=== PATIENT | female | born 1955 | race Caucasian/White ===

== ENCOUNTER 2019-06-01 08:09 | Outpatient (CLI) | payer MEDICARE, SELFPAY ==
[2019-06-01 08:48] LABS: Basophils % 0.5 %; Eosinophils # 0.1 10^3/uL (0.0-0.8); Eosinophils % 2.2 %; Hematocrit 43.9 % (37.0-47.0); Hemoglobin 13.4 g/dL (11.5-15.3); Lymphocytes # 1.3 10^3/uL (0.8-4.8); Lymphocytes % 32.6 %; Mean Corpuscular HGB Conc 30.5 g/dL (30.0-36.0); Mean Corpuscular Hemoglobin 31.9 pg (28.0-34.0); Mean Corpuscular Volume 104.5 fL (81-99); Mean Platelet Volume 9.6 fL (7.4-10.4); Monocytes # 0.4 10^3/uL (0.2-0.9); Neutrophils # 2.2 10^3/uL (1.8-7.7); Neutrophils % 54.5 %; Nucleated Red Blood Cells % 0 %; Platelet Count 268 10^3/cmm (130-400); Red Cell Distribution Width 12.3 % (12.1-15.1)
[2019-06-01 09:06] LABS: Alanine Aminotransferase 14 U/L (0-33); Albumin Level 4.4 g/dL (3.5-5.2); Alkaline Phosphatase 67 IU/L (35-105); Anion Gap 14.5 (5-19); Aspartate Amino Transferase 21 U/L (0-32); Blood Urea Nitrogen 18 mg/dL (8-23); Calcium 10.3 mg/dL (8.5-10.5); Carbon Dioxide 28 mmol/L (22-29); Chloride 101 mmol/L (98-107); Globulin 3.5 g/dL (1.3-4.6); Glomerular Filtration Rate 101.3 mL/min (90-130); Glucose 87 mg/dL (65-115); Potassium 4.5 mmol/L (3.5-5.1); Sodium 139 mmol/L (136-145); Total Bilirubin 0.3 mg/dL (0.15-1.2); Total Protein 7.9 g/dL (6.6-8.7)
--- NOTE | 2019-06-04 07:15 | ONC FU_ITS ---
Dr. Riddle Patient Follow-Up Note Patient: Kaci Lloyd Unit #: [id number]: 1955 Dicatated By: Vickey Riddle M.D.Date of Visit:Jun 01, 2019 Onc Med Follow-up/Prog Note Chief Complaint: Breast cancer. 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 She had presented with an abnormal screening mammogram. Diagnostic mammogram and ultrasound on 01/17/2015 showed 1.6 cm mass located 1 cm from the nipple and 5.2 mm mass located at 2 cm for the nipple, both lesions at the 11:00 position. An ultrasound-guided biopsy on 02/02/2015 of both lesions revealed adenocarcinoma with a mixed histological pattern, grade 2 out of 3. Her prognostic profile showed ER 80%, NC 75%, and HER-2/cristofer negative (1+ by IHC, FISH not amplified at 1.1). Ki-67 index was 9%. She was first seen by Dr. Sanchez on 02/22/2015. On 03/10/2015 she underwent lumpectomy and sentinel lymph node biopsy by Dr. De Jesus. Her surgical pathology showed 1.2 cm tumor with positive posterior and superior margins. A total of 8 sentinel lymph nodes were negative for metastatic disease. Thus, her clinical staging was IA (T1c, N0, M0). She underwent re-excision on 03/29/2015 with pathology showing scant residual adenocarcinoma and free margins. Oncotype DX score was 13, corresponding to 9% risk of recurrence in 10 years following hormonal therapy. Adjuvant chemotherapy was not recommended. She completed radiation to the right breast on 06/13/2015 to a total dose of 6000 cGy. Adjuvant hormonal therapy with Femara 2.5 mg began on 03/24/2015. I had seen her for a scheduled followup visit on 05/01/2016. At that time she reported increased fatigue and hot flashes, and she was having more musculoskeletal pain. I suspected that at least some of this was treatment related, and I did have her stop the letrozole. On her follow-up visit on 06/05/2016 she still had some fatigue, but she felt that her energy was 60% better off the letrozole. She still complained of pain in her right breast, but the musculoskeletal pain had improved. At that point she began further hormonal therapy with exemestane 25 mg daily. During subsequent follow-up, she has continued to have some fatigue on the exemestane and she also has had some hot flashes, but side effects have been tolerable. Her other medical illnesses have included degenerative arthritis and peripheral neuropathy. She has significant TMJ arthropathy, and she had undergone placement of TMJ implants. She underwent bilateral total knee arthroplasty in 2012. Her Dexa scan in November 2015 showed normal bone density. She is a nonsmoker. Her family history is significant in a sister has been treated for rectal cancer, and she apparently also was found to have follicular lymphoma. There has been no breast cancer or ovarian cancer in the family. INTERIM HISTORY: In December 2017 she underwent TMJ surgery in [place]. It was an extensive procedure. She indicated that her zygomatic arch had eroded away. The procedure did help significantly to reduce her migraine headaches. As of her follow-up visit in March 2018 she appeared stable clinically, and she continued adjuvant hormonal therapy with exemestane 25 mg daily. She is seen for a followup visit. She has been feeling good generally. She has continued to show gradual recovery following her TMJ surgery. She says the hardware was finally removed a month ago. Her jaws still get tired and sore, but she is starting to eat more. Her energy is improving. ECOG score is 1. She has not had any fever. She has a little bit of hot flashes. She has a little cough in the mornings. She does not complain of shortness of breath or chest pain. She has no GI complaints other than some constipation, which is chronic. Bladder function has been okay, but she complains that she is starting to retain water. She continues to have some tenderness in her breast/axillary area. She has some arthritis in her hands, and she has some low back pain. All of that is tolerable. She has some headaches. She has no focal neurologic symptoms. Medications: Acetaminophen 2 (500 mg) Tablet Oral daily PRN, Aspirin 1 Tablet (of 325 mg) Tablet Oral daily, Cholecalciferol 1 (5000 Units) Capsule Oral daily, Cyanocobalamin 2 drop(s) (of 5000 mcg/mL) Liquid Sublingual daily, Exemestane 1 (25 mg) Tablet Oral daily, Gabapentin (900 mg) Capsule Oral Take as Directed, Glucosamine Chondroit-Collagen 3 Capsule Oral daily, Ibuprofen 800 mg (of 400 mg) Tablet Oral PRN, Magnesium 2 Tablet Oral daily, Multivitamins 2 Capsule Oral daily Allergies: eggs, grapefruit, Morphine Sulfate, Penicillin V Potassium, and wheat. Review of Systems: Constitutional - Her energy level is improving. She is starting to eat more. Her weight is stable. No fever, chills, hot flashes, or night sweats. ECOG score is 1, ENMT - No sinus congestion/drainage. Her mouth is not as sore, but her jaws get tired and sore. No sore throat or difficulty swallowing, Hematologic/Lymphatic - She bruises easily, Respiratory - No shortness of breath. She has a cough in the mornings. No pleuritic pain or hemoptysis, Cardiovascular - No angina pain. No palpitations, Gastrointestinal - No nausea or vomiting. No heartburn or acid reflux. She has some constipation with small, hard stools. No blood in the stool or black stools, Genitourinary (F) - No dysuria or hematuria. She has urinary frequency at night. No urgency or incontinence, Musculoskeletal - She has persistent back pain. She has tenderness in her breast. She has stiffness in her hands, Integumentary - No skin complications, Neurologic - She has some headaches. No dizziness. No numbness/paresthesias or other focal neurologic symptoms, Psychiatric - No anxiety or depression. She is up a lot during the night. Vital Signs: Performed on Jun 01, 2019 15:22 Height - 67.00 in Weight - 118.0 lbs (HIGH) BSA - 1.62 sq.m BMI - 18.48 Temperature - 97.8 F (LOW) Pulse - 78 /min Respiration - 18 /min BP - 108/66 mm(hg) O2 Sat - 100 % Pain - 2 Physical Examination: Constitutional - She looks good generally, Eyes - Sclerae nonicteric. Conjunctivae clear, ENMT - No lesions noted in the oral cavity, Hematologic/Lymphatic - No cervical, clavicular, or axillary adenopathy, Respiratory - Lungs are clear, Cardiovascular - Heart rhythm is regular. There is no murmur, gallop, or rub noted, Abdomen - Soft. Liver and spleen are not enlarged. There is no abdominal mass or ascites noted and there is no inguinal adenopathy, Extremities - No edema, Neurologic - No focal neurologic deficits noted. Lab/Imaging: Test performed on Jun 01, 2019 08:20 Sodium 139 mmol/L Potassium 4.5 mmol/L Chloride 101 mmol/L CO2 28 mmol/L Anion Gap 14.5 BUN 18 mg/dL Creatinine 0.6 mg/dL Cr Clearance (Est) 82.1500 mL/min eGFR 101.3 mL/min Glucose 87 mg/dL Calcium 10.3 mg/dL Protein, Total 7.9 g/dL Albumin 4.4 g/dL Globulin 3.5 g/dL Bilirubin, Total 0.3 mg/dL ALT (SGPT) 14 U/L AST (SGOT) 21 U/L Alkaline Phosphatase 67 IU/L WBC 4.0 10 3/uL RBC 4.20 10 6/uL HGB 13.4 g/dL HCT 43.9 % MCV 104.5 fL MCH 31.9 pg MCHC 30.5 g/dL RDW 12.3 % Platelet Count 268 10 3/cmm MPV 9.6 fL Neutrophils 2.2 10 3/uL Lymphocytes 1.3 10 3/uL Monocytes 0.4 10 3/uL Eosinophils 0.1 10 3/uL Basophils 0.0 10 3/uL Neutrophil % 54.5 % Lymphocyte % 32.6 % Monocyte % 10.0 % Eosinophil % 2.2 % Basophils % 0.5 % Impression: 1. Patient with grade 2 adenocarcinoma of the right breast, stage IA (T1c, N0, M0), ER/NC positive and HER-2/cristofer negative. Oncotype DX score was 13, corresponding to a 9% risk of recurrence after completion of hormonal therapy. 2. Treatment included lumpectomy/sentinel axillary lymph node biopsy followed by reexcision lumpectomy and radiation, completed in June 2015. 3. Based on favorable Oncotype DX, adjuvant chemotherapy was not recommended. She began adjuvant hormonal therapy with letrozole 2.5 mg daily in March 2015. Her other medical illnesses include: 4. Degenerative arthritis. 5. Peripheral neuropathy. On 05/01/2016 her letrozole was put on hold due to increasing fatigue, hot flashes, and musculoskeletal pain. She did have improvement but not complete resolution of her symptoms after stopping the medication. She began further hormonal therapy with exemestane 25 mg daily as of 06/05/2016. She has been able to tolerated with acceptable toxicity. She had ongoing problems related to TMJ disease, and she underwent TMJ surgery with placement of new implants in December 2017. She has had gradual recovery following that procedure. Durihng followup she has had some fatigue and some generalized achiness, but she has been able to tolerate the exemestane with acceptable toxicity. She continues to show further recovery from the TMJ surgery. Overall, she appears to be doing well clinically with no evidence of recurrence of the breast cancer. Plan: She will continue exemestane 25 mg daily through the end of April 2020, at which point she will have completed 5 years of adjuvant hormonal therapy. I will see her again in 1 year. In the meantime, she will be given a prescription for hydrochlorothiazide 25 mg to take once daily as needed for swelling. Signed By: Vickey Riddle M.D. <<Signature on File>>
== END 2019-06-01 08:10 | disposition home or self-care (01) ==
LOC: ONCMED 08:10
PROVIDERS: Family Provider Family Medicine; PCP Family Medicine; Visit Provider Internal Medicine Medical Oncology
DX: C50.411 Malignant neoplasm of upper-outer quadrant of right female breast (principal); Z17.0 Estrogen receptor positive status [ER+]; M19.90 Unspecified osteoarthritis, unspecified site; G62.9 Polyneuropathy, unspecified; K59.09 Other constipation; M54.5 Low back pain; Z79.811 Long term (current) use of aromatase inhibitors; Z79.899 Other long term (current) drug therapy; Z92.3 Personal history of irradiation; Z96.653 Presence of artificial knee joint, bilateral
CPT/HCPCS: 80053; 85025; 99214

== ENCOUNTER 2019-11-30 10:03 | Outpatient (CLI) | payer MEDICARE, SELFPAY ==
--- NOTE | 2019-11-30 10:14 | MM_ITS ---
WS: [id number] DIAGNOSTIC BILATERAL DIGITAL MAMMOGRAM WITH CAD HISTORY: HX OF BREAST CA COMPARISON: 10/23/2018, 10/22/2017 and 09/23/2016 TECHNIQUE: Bilateral craniocaudad, mediolateral oblique, and mediolateral views are submitted. Comput er aided detection utilized. Breast composition: The breasts are extremely dense, which lowers the sensitivity of mammography. The bilateral calcifications. Large area of distortion upper outer quadrant of the RIGHT breast from mari or surgery. There is also mild skin thickening. Due to the very dense fibroglandular tissue subtle ch anges would be very difficult to confirm. 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 MM/[id number] IMPRESSION: BI-RADS: 2-Benign FOLLOW UP: 1 Year Follow-up
== END 2019-11-30 10:04 | disposition home or self-care (01) ==
LOC: RADSHAW 10:09
PROVIDERS: PCP Family Medicine; Visit Provider Internal Medicine Medical Oncology
DX: Z85.3 Personal history of malignant neoplasm of breast (principal)
CPT/HCPCS: 77066

== ENCOUNTER 2020-06-19 08:07 | Outpatient (CLI) | payer MEDICARE, SELFPAY ==
[2020-06-19 08:53] LABS: Basophils % 0.8 %; Eosinophils # 0.1 10^3/uL (0.0-0.8); Eosinophils % 3.5 %; Hematocrit 40.5 % (37.0-47.0); Hemoglobin 13.1 g/dL (11.5-15.3); Lymphocytes # 1.4 10^3/uL (0.8-4.8); Lymphocytes % 34.3 %; Mean Corpuscular HGB Conc 32.3 g/dL (30.0-36.0); Mean Platelet Volume 9.6 fL (7.4-10.4); Monocytes # 0.5 10^3/uL (0.2-0.9); Monocytes % 13.1 %; Neutrophils # 1.92 10^3/uL (1.8-7.7); Neutrophils % 48.3 %; Nucleated Red Blood Cells % 0 %; Platelet Count 265 10^3/cmm (130-400); Red Blood Count 3.97 10^6/uL (4.1-5.3); Red Cell Distribution Width 12.6 % (12.1-15.1)
[2020-06-19 09:18] LABS: Alanine Aminotransferase 11 U/L (0-33); Albumin Level 4.2 g/dL (3.5-5.2); Alkaline Phosphatase 58 IU/L (35-105); Anion Gap 9.8 (5-19); Aspartate Amino Transferase 18 U/L (0-32); Blood Urea Nitrogen 12 mg/dL (8-23); Calcium 9.6 mg/dL (8.5-10.5); Carbon Dioxide 30 mmol/L (22-29); Chloride 101 mmol/L (98-107); Globulin 2.6 g/dL (1.3-4.6); Glomerular Filtration Rate 124.6 mL/min (90-130); Glucose 79 mg/dL (65-115); Osmolality Calculated 283 mOsm/kg (285-295); Potassium 3.8 mmol/L (3.5-5.1); Sodium 137 mmol/L (136-145); Total Bilirubin 0.3 mg/dL (0.15-1.2); Total Protein 6.8 g/dL (6.6-8.7)
--- NOTE | 2020-06-19 10:57 | ONC FU_ITS ---
Dr. Riddle Patient Follow-Up Note Patient: Kaci Lloyd Unit #: [id number]: 1955 Dicatated By: Vickey Riddle M.D.Date of Visit:Jun 19, 2020 Onc Med Follow-up/Prog Note Chief Complaint: Breast cancer. History of Present Illness: This is a 65 year-old woman with multifocal, grade 2 adenocarcinoma of the right breast, stage IA (T1c, N0, M0), ER/UT positive and HER-2/cristofer negative. She had presented with an abnormal screening mammogram. Diagnostic mammogram and ultrasound on 01/17/2015 showed 1.6 cm mass located 1 cm from the nipple and 5.2 mm mass located at 2 cm for the nipple, both lesions at the 11:00 position. An ultrasound-guided biopsy on 02/02/2015 of both lesions revealed adenocarcinoma with a mixed histological pattern, grade 2 out of 3. Her prognostic profile showed ER 80%, UT 75%, and HER-2/cristofer negative (1+ by IHC, FISH not amplified at 1.1). Ki-67 index was 9%. She was first seen by Dr. Sanchez on 02/22/2015. On 03/10/2015 she underwent lumpectomy and sentinel lymph node biopsy by Dr. De Jesus. Her surgical pathology showed 1.2 cm tumor with positive posterior and superior margins. A total of 8 sentinel lymph nodes were negative for metastatic disease. Thus, her clinical staging was IA (T1c, N0, M0). She underwent re-excision on 03/29/2015 with pathology showing scant residual adenocarcinoma and free margins. Oncotype DX score was 13, corresponding to 9% risk of recurrence in 10 years following hormonal therapy. Adjuvant chemotherapy was not recommended. She completed radiation to the right breast on 06/13/2015 to a total dose of 6000 cGy. Adjuvant hormonal therapy with Femara 2.5 mg began on 03/24/2015. I had seen her for a scheduled followup visit on 05/01/2016. At that time she reported increased fatigue and hot flashes, and she was having more musculoskeletal pain. I suspected that at least some of this was treatment related, and I did have her stop the letrozole. On her follow-up visit on 06/05/2016 she still had some fatigue, but she felt that her energy was 60% better off the letrozole. She still complained of pain in her right breast, but the musculoskeletal pain had improved. At that point she began further hormonal therapy with exemestane 25 mg daily. During subsequent follow-up, she has continued to have some fatigue on the exemestane and she also has had some hot flashes, but side effects have been tolerable. Her other medical illnesses have included degenerative arthritis and peripheral neuropathy. She has significant TMJ arthropathy, and she had undergone placement of TMJ implants. She underwent bilateral total knee arthroplasty in 2012. Her Dexa scan in November 2015 showed normal bone density. She is a nonsmoker. Her family history is significant in a sister has been treated for rectal cancer, and she apparently also was found to have follicular lymphoma. There has been no breast cancer or ovarian cancer in the family. INTERIM HISTORY: In December 2017 she underwent TMJ surgery in [place]. It was an extensive procedure. She indicated that her zygomatic arch had eroded away. The procedure did help significantly to reduce her migraine headaches. As of her follow-up visit in March 2018 she appeared stable clinically, and she continued adjuvant hormonal therapy with exemestane 25 mg daily. She is seen for a followup visit. She indicates that she was diagnosed with COVID-19 virus infection in January. She had fairly minor symptoms with it, and she recovered uneventfully. She still has some fatigue, though. Her ECOG score is 1. She has had good appetite and she has been able to gain some weight. She does not have fever, night sweats, or hot flashes. She has some sinus congestion/chest in the morning with associated cough. She does not complain of shortness of breath or chest pain. She has no GI complaints. Bladder function remains adequate. She has some very slight incontinence. She continues to have joint pain, mainly the TMJs. She also has ongoing problems with low back pain. She says her knees have been pretty good lately. She has headache periodically. She has no focal neurologic symptoms. Medications: Acetaminophen 2 (500 mg) Tablet Oral daily PRN, Aspirin 1 Tablet (of 325 mg) Tablet Oral daily, Cholecalciferol 1 (5000 Units) Capsule Oral daily, Cyanocobalamin 2 drop(s) (of 5000 mcg/mL) Liquid Sublingual daily, Exemestane 1 (25 mg) Tablet Oral daily, Gabapentin (900 mg) Capsule Oral Take as Directed, Glucosamine Chondroit-Collagen 3 Capsule Oral daily, Ibuprofen 800 mg (of 400 mg) Tablet Oral PRN, Magnesium 2 Tablet Oral daily, Multivitamins 2 Capsule Oral daily Allergies: eggs, grapefruit, Morphine Sulfate, Penicillin V Potassium, and wheat. Vital Signs: Performed on Jun 19, 2020 10:12 Height - 67.00 in Weight - 125 lbs (HIGH) BSA - 1.66 sq.m BMI - 19.58 Temperature - 97.4 F (LOW) Pulse - 64 /min Respiration - 18 /min BP - 110/72 mm(hg) O2 Sat - 100 % Pain - 2 Fatigue - 3 Physical Examination: Constitutional - She looks good generally, Eyes - Sclerae nonicteric. Conjunctivae clear, ENMT - No lesions noted in the oral cavity, Hematologic/Lymphatic - No cervical or clavicular adenopathy, Respiratory - Lungs are clear, Cardiovascular - Heart rhythm is regular. There is no murmur, gallop, or rub noted, Breasts - There are multiple areas of nodularity in both breasts, but there are no suspicious masses noted. There is no axillary adenopathy, Abdomen - Soft. Liver and spleen are not enlarged. There is no abdominal mass or ascites noted and there is no inguinal adenopathy, Extremities - No edema, Neurologic - No focal neurologic deficits noted. Lab/Imaging: Test performed on Jun 19, 2020 08:24 Sodium 137 mmol/L Potassium 3.8 mmol/L Chloride 101 mmol/L CO2 30 mmol/L Anion Gap 9.8 BUN 12 mg/dL Creatinine 0.5 mg/dL Cr Clearance (Est) 103.08 mL/min eGFR 124.6 mL/min Glucose 79 mg/dL Osmolality - Calculated 283 mOsm/kg Calcium 9.6 mg/dL Protein, Total 6.8 g/dL Albumin 4.2 g/dL Globulin 2.6 g/dL Bilirubin, Total 0.3 mg/dL ALT (SGPT) 11 U/L AST (SGOT) 18 U/L Alkaline Phosphatase 58 IU/L WBC 4.0 10 3/uL RBC 3.97 10 6/uL HGB 13.1 g/dL HCT 40.5 % MCV 102.0 fL MCH 33.0 pg MCHC 32.3 g/dL RDW 12.6 % Platelet Count 265 10 3/cmm MPV 9.6 fL Neutrophils 1.92 10 3/uL Lymphocytes 1.4 10 3/uL Monocytes 0.5 10 3/uL Eosinophils 0.1 10 3/uL Basophils 0.0 10 3/uL Neutrophil % 48.3 % Lymphocyte % 34.3 % Monocyte % 13.1 % Eosinophil % 3.5 % Basophils % 0.8 % NRBC % 0 % Problem List: 1. Grade 2 adenocarcinoma of the right breast, stage IA (T1c, N0, M0), ER/UT positive and HER-2/cristofer negative. 2. Degenerative arthritis, including TMJ disease, for which she underwent TMJ surgery with placement of new implants in December 2017. 3. Peripheral neuropathy. Problems Addressed with this Encounter and Plan: Patient with grade 2 adenocarcinoma of the right breast, stage IA (T1c, N0, M0), ER/UT positive and HER-2/cristofer negative. Oncotype DX was low risk with recurrence score was 13, corresponding to a 9% risk of recurrence with hormonal therapy. Treatment included lumpectomy/sentinel axillary lymph node biopsy followed by reexcision lumpectomy and radiation, completed in June 2015. Based on favorable Oncotype DX, adjuvant chemotherapy was not recommended. She began adjuvant hormonal therapy with letrozole 2.5 mg daily in March 2015. As of April 2016 the letrozole was put on hold due to increasing fatigue, hot flashes, and musculoskeletal pain. She then began further hormonal therapy with exemestane 25 mg daily in June 2016. She has been able to tolerated with acceptable toxicity. At this point she appears to be doing well clinically. She has now completed 5 years of adjuvant hormonal therapy with no evidence of recurrence of the breast cancer. We discussed options for further management, specifically the issue of 10 years versus 5 years of adjuvant hormonal therapy. Assuming it would be covered by insurance, she would be interested in getting a breast cancer index study, which will provide a more accurate indication as to her risk of late recurrence. For now she will continue the exemestane at 25 mg daily and when the breast cancer index result is available we can decide whether to stop treatment or continue for 10 years of adjuvant hormonal therapy. Signed By: Vickey Riddle M.D. <<Signature on File>>
== END 2020-06-19 08:08 | disposition home or self-care (01) ==
LOC: ONCMED 08:12
PROVIDERS: Visit Provider Internal Medicine Medical Oncology
DX: C50.411 Malignant neoplasm of upper-outer quadrant of right female breast (principal); Z17.0 Estrogen receptor positive status [ER+]; Z79.811 Long term (current) use of aromatase inhibitors; Z92.3 Personal history of irradiation
CPT/HCPCS: 36415; 80053; 85025; 99214